=== PATIENT | female | born 1940 | race Two or more races ===

== ENCOUNTER 2024-10-22 16:00 | Inpatient (IN) | payer MEDICARE, OTHER ==
[~2024-10-22] VITALS: Ht 160 cm; Wt 61.2 kg
[~2024-10-22 16:00] MED LIST: LENA20CA PO
[2024-10-22] MEDS: IV NS 0.9% 1,000 ML BAG IV ONE (16:15)
[2024-10-22] MEDS ORDERED: NOREPINEPHRINE 8MG/250ML RTU 250 ML IV ONE (16:16)
[2024-10-22] MEDS ORDERED: PIPERACI/TAZO 3.375GM/D5W 50ML PB IV ONE (16:18)
[2024-10-22 17:00] LABS: LACTIC ACID 3.5 mmol/L (0.4-2.0)
[2024-10-22 17:05] LABS: INR 1.17 (0.91-1.10); PARTIAL THROMBOPLASTIN TIME 25.3 SEC (24.3-34.3); PROTHROMBIN TIME 12.3 SECS (9.2-11.1)
[2024-10-22 17:08] LABS: ALANINE AMINOTRANSFERASE 13 U/L (12-78); ALBUMIN 2.4 g/dL (3.4-5.0); ALKALINE PHOSPHATASE 112 U/L (46-116); ASPARTATE AMINOTRANSFERASE 16 U/L (15-37); BILIRUBIN,DIRECT 0.2 mg/dL (0.0-0.2); BILIRUBIN,TOTAL 0.5 mg/dL (0.2-1.0); CALCIUM, SERUM 8.8 mg/dL (8.5-10.1); CARBON DIOXIDE 19 mmol/L (21-32); CHLORIDE 105 mmol/L (98-107); CREATININE 5.2 mg/dL (0.6-1.3); GLUCOSE 172 mg/dL (74-106); POTASSIUM 3.4 mmol/L (3.5-5.1); SODIUM SERUM 140 mmol/L (136-145); TOTAL PROTEIN, SERUM 5.9 g/dL (6.4-8.2)
[2024-10-22 17:10] LABS: UREA NITROGEN, BLOOD 90 mg/dL (7-18)
[2024-10-22] MEDS ORDERED: CLOP75TA15 PO (17:28)
[2024-10-22] MEDS ORDERED: EMPA25TA PO (17:28)
[2024-10-22] MEDS ORDERED: LEVO-146 PO (17:28)
[2024-10-22] MEDS ORDERED: BISA10SU11 RC (17:28)
[2024-10-22] MEDS ORDERED: ACET-637 PO (17:28)
[2024-10-22] MEDS ORDERED: MIRT-90 PO (17:28)
[2024-10-22] MEDS ORDERED: GUAI100L26 PO (17:28)
[2024-10-22] MEDS ORDERED: ACET325T53 PO (17:28)
[2024-10-22] MEDS ORDERED: POLY15DR31 EACHEYE (17:28)
[2024-10-22] MEDS ORDERED: ONDA8TAB65 PO (17:28)
[2024-10-22] MEDS ORDERED: ACET-73 PO (17:28)
[2024-10-22] MEDS ORDERED: MELA3TAB41 PO (17:28)
[2024-10-22] MEDS ORDERED: FOLI0.8T23 PO (17:28)
[2024-10-22] MEDS ORDERED: DEXT37.54 PO (17:28)
[2024-10-22] MEDS ORDERED: GLUC1KIT IM (17:28)
[2024-10-22] MEDS ORDERED: PANT40TA49 PO (17:28)
[2024-10-22] MEDS ORDERED: MIDO10TA PO (17:28)
[2024-10-22] MEDS ORDERED: CALC667T8 PO (17:28)
[2024-10-22] MEDS: NOREPINEPHRINE 8 MG in IV NS 0.9% 250 ML IV ONE (17:30)
[2024-10-22] MEDS ORDERED: IOHEXOL-350 100 ML VIAL IV ONE (17:58)
[2024-10-22] MEDS ORDERED: IV NS 0.9% 250 ML IV ONE (17:58)
[2024-10-22 18:18] LABS: APPEARANCE,URINE TURBID (CLEAR); BILIRUBIN,URINE 2+ (NEGATIVE); BLOOD, URINE 3+ Ery/uL (NEGATIVE); COLOR,URINE BROWN (YELLOW); KETONES,URINE TRACE mg/dL (NEGATIVE); LEUKOCYTE ESTERASE ,URINE 2+ (NEGATIVE); NITRITE, URINE POSITIVE (NEGATIVE); PH,URINE 6.5 (5.0-8.0); PROTEIN,URINE 2+ mg/dl (NEGATIVE); UGLUCOSE TRACE mg/dL (NEGATIVE)
[2024-10-22] MEDS: AMIODARONE 450 MG in IV D5W 250 ML IV ONE (18:30)
[2024-10-22] MEDS: PIPERACILLIN /TAZOBACTAM 3.375 G in IV D5W 50 ML IV ONE (18:30)
[2024-10-22] MEDS: AMIODARONE 150 MG in IV D5W 100 ML IV ONE (18:30)
[2024-10-22 18:47] LABS: ADD URINE CULTURE YES; BACTERIA,URINE Many /HPF (None Seen); SQUAMOUS EPITHELIAL CELL,UR Few /HPF (None Seen); WBC,URINE TOO NUMEROUS TO COUN /HPF (0-3)
[2024-10-22 18:48] LABS: RBC,URINE 21-50 /HPF (0-2)
[2024-10-22 18:53] LABS: BASOPHILS % (AUTO) 0.6 % (0.0-2.0); EOSINOPHILS # (AUTO) 0.1 K/uL (0.0-0.7); EOSINOPHILS % (AUTO) 1.1 % (0.0-6.0); HEMATOCRIT 31 % (33-45); LYMPHOCYTES % (AUTO) 13.6 % (20.0-44.0); MEAN CORPUSCULAR HEMOGLOBIN 33 PG (26.0-33.0); MEAN CORPUSCULAR HGB CONC 32 g/dl (31.0-36.0); MEAN CORPUSCULAR VOLUME 102 fL (82-100); MONOCYTES # (AUTO) 0.8 K/uL (0.1-1.30); MONOCYTES % (AUTO) 11.5 % (2.0-12.0); NEUTROPHILS # (AUTO) 5.3 K/uL (1.8-8.9); NEUTROPHILS % (AUTO) 73.2 % (43.0-81.0); PLATELET COUNT (AUTO) 60 K/uL (150-450); RED BLOOD CELL COUNT(AUTO) 3.04 MIL/uL (4.0-5.2); RED CELL DISTRIBUTION WIDTH 18.2 % (11.5-15.0); WHITE BLOOD COUNT (AUTO) 7.3 K/uL (4.3-11.0)
[2024-10-22] MEDS: PHENYLEPHRINE 50 MG in IV NS 0.9% 250 ML IV ONE (19:00)
[2024-10-22 19:30] LABS: BAND % (MANUAL) 14 % (0.0-5.0); LYMPHOCYTES % (MANUAL) 12 % (16-48); METAMYELOCYTES % 1 % (0-0); MONOCYTES % (MANUAL) 11 % (0-11.0); MYELOCYTES % 1 % (0-0); NEUTROPHILS % (MANUAL) 61 (42-76)
[2024-10-22] MEDS ORDERED: ACETAMINOPHEN 325 MG TABLET PO PRN (19:30)
[2024-10-22] MEDS: IV NS 0.9% 1,000 ML IV ONE (19:30)
[2024-10-22] MEDS ORDERED: AMIODARONE 450 MG in IV D5W 241 ML IV PRN (19:30)
[2024-10-22] MEDS ORDERED: Z GUARD REMEDY 4 OZ OINT TP PRN (19:30)
[2024-10-22] MEDS ORDERED: ONDANSETRON HCL/PF 4 MG/2 ML VIAL IVP PRN (19:30)
[2024-10-22 19:31] LABS: PLATELET ESTIMATE DECRE
[2024-10-22 19:32] LABS: ANISOCYTOSIS 1+
[2024-10-22] MEDS ORDERED: ETOMIDATE 2 MG/ML VIAL ONE (19:33)
[2024-10-22] MEDS ORDERED: FENTANYL PF 100MCG/2ML AMPUL ONE (19:41)
[2024-10-22] MEDS: ETOMIDATE 2 MG/ML VIAL IV ONE ×2 (19:57→20:00)
[2024-10-22] MEDS: VASOPRESSIN INJ 40 UNIT in IV NS 0.9% 38 ML IV PRN (20:05)
[2024-10-22] MEDS: VANCOMYCIN 1 GM in IV D5W 250 ML IV ONE (20:30)
[2024-10-22] MEDS: SODIUM BICARBONATE 5 MEQ/10 ML DISP.SYRIN IV ONE (20:30)
[2024-10-22] MEDS ORDERED: ALBUMIN 25% 50 ML IV ONE ×2 (20:34→20:39)
[2024-10-22] MEDS ORDERED: SODIUM BICARBONATE SYR 50 MEQ/50 ML DISP.SYRIN ONE (20:43)
[2024-10-22 20:48] LABS: ABG BASE EXCESS -18.8 mmol/L (-2.0-3.0); ABG OXYGEN SATURATION 94.1 % (94.0-98.0); ABG PCO2 27.5 mmHg (32.0-45.0); ABG PH 7.129 (7.350-7.450); ABG TOTAL HEMOGLOBIN 9.9 G/dL (12.0-16.0); COHb 0.2 % (0.5-1.5); MetHb 0.7 % (0.0-1.5); O2Hb 93.3 % (94.0-97.0); SITE, ABG ALINE
[2024-10-22] MEDS: ALBUMIN 25% 12.5 GM/50 ML BOTTLE IV ONE (20:53)
[2024-10-22] MEDS ORDERED: VANCOMYCIN 1 GM /D5W 250 ML PB IV ONE (21:03)
[2024-10-22] MEDS: SODIUM BICARBONATE SYR 50 MEQ/50 ML DISP.SYRIN IV ONE ×2 (21:30→21:44)
[2024-10-22 23:00] VITALS: BP 115/93; O2SAT 96
[2024-10-22] MEDS: MEROPENEM 1 G in IV NS 0.9% 100 ML IV SCH (23:04)
[2024-10-22] MEDS: Sodium Bicarbonate 100 MEQ in IV D5/0.45 NACL 1,000 ML IV SCH (23:27)
[2024-10-22 23:30] VITALS: BP 143/112; O2SAT 94
[2024-10-22 23:45] VITALS: BP 50/40; O2SAT 95
[2024-10-22] MEDS: PHENYLEPHRINE 50 MG in IV NS 0.9% 245 ML IV PRN (23:54)
[2024-10-23] VITALS (97 sets, daily range): BP systolic 60–157; BP diastolic 31–106; TEMP 97.4–98.4; O2SAT 82–100
[2024-10-23] MEDS: PHENYLEPHRINE 10 MG/ML VIAL ONE ×2 (00:34)
[2024-10-23] MEDS: PHENYLEPHRINE 100 MG in IV NS 0.9% 240 ML IV PRN ×2 (00:41)
[2024-10-23] MEDS ORDERED: NOREPINEPHRINE 8 MG in IV D5W 242 ML IV PRN (02:30)
[2024-10-23] MEDS: NOREPINEPHRINE 32 MG in IV NS 0.9% 218 ML IV PRN (03:25)
[2024-10-23] MEDS: NOREPINEPHRINE 4 MG/4 ML AMPUL IV ONE (03:25)
[2024-10-23] MEDS: HYDROCORTISONE SOD SUCCINATE 100 MG/2 ML VIAL IV ONE (03:39)
[2024-10-23] MEDS: AMIODARONE 150 MG in IV D5W 100 ML IV ONE (04:46)
[2024-10-23 05:20] LABS: BASOPHILS % (AUTO) 0.2 % (0.0-2.0); EOSINOPHILS # (AUTO) 0.1 K/uL (0.0-0.7); EOSINOPHILS % (AUTO) 2.2 % (0.0-6.0); HEMATOCRIT 22 % (33-45); HEMOGLOBIN 7.3 g/dL (11.5-14.8); LYMPHOCYTES # (AUTO) 0.2 K/uL (0.8-4.8); MEAN CORPUSCULAR HEMOGLOBIN 32 PG (26.0-33.0); MEAN CORPUSCULAR HGB CONC 33 g/dl (31.0-36.0); MEAN CORPUSCULAR VOLUME 99 fL (82-100); MONOCYTES # (AUTO) 0.3 K/uL (0.1-1.30); MONOCYTES % (AUTO) 5.7 % (2.0-12.0); NEUTROPHILS # (AUTO) 5.3 K/uL (1.8-8.9); NEUTROPHILS % (AUTO) 88.9 % (43.0-81.0); RED BLOOD CELL COUNT(AUTO) 2.25 MIL/uL (4.0-5.2); RED CELL DISTRIBUTION WIDTH 17.7 % (11.5-15.0)
[2024-10-23 05:46] LABS: ALBUMIN 2.2 g/dL (3.4-5.0); BILIRUBIN,TOTAL 0.6 mg/dL (0.2-1.0); TOTAL PROTEIN, SERUM 4.5 g/dL (6.4-8.2)
[2024-10-23 05:50] LABS: PLATELET COUNT (AUTO) 38 K/uL (150-450)
[2024-10-23 06:13] LABS: POTASSIUM 2.1 mmol/L (3.5-5.1)
[2024-10-23 06:21] LABS: LACTIC ACID 4.6 mmol/L (0.4-2.0)
[2024-10-23 07:06] LABS: MAGNESIUM 1.4 mg/dL (1.8-2.4); PHOSPHORUS 5.5 mg/dL (2.5-4.9)
[2024-10-23 07:17] LABS: THYROID STIMULATING HORMONE 2.06 uIU/mL (0.358-3.74)
[2024-10-23] MEDS: POTASSIUM CL. PREMIX PERIPHER. 50 ML IV SCH ×2 (07:47→14:08)
[2024-10-23] MEDS ORDERED: Sodium Bicarbonate 100 MEQ in IV D5/0.45 NACL 1,000 ML IV SCH (09:00)
[2024-10-23] MEDS ORDERED: Sodium Bicarbonate 150 MEQ in IV D5W 1,000 ML IV SCH (09:30)
[2024-10-23] MEDS: Sodium Bicarbonate 150 MEQ in IV D5W 1,000 ML IV SCH (10:00)
[2024-10-23 10:23] LABS: ABG BASE EXCESS -6.2 mmol/L (-2.0-3.0); ABG OXYGEN SATURATION 98.7 % (94.0-98.0); ABG PCO2 35.8 mmHg (32.0-45.0); ABG PH 7.342 (7.350-7.450); ABG PO2 189.8 mmHg (83.0-108.0); ABG TOTAL HEMOGLOBIN 8.3 G/dL (12.0-16.0); MetHb 0.6 % (0.0-1.5); O2Hb 98.1 % (94.0-97.0); SITE, ABG RIGHT RADIAL
[2024-10-23] MEDS: PANTOPRAZOLE 40 MG VIAL IV SCH (11:37)
[2024-10-23 12:34] LABS: BAND % (MANUAL) 3 % (0.0-5.0); LYMPHOCYTES % (MANUAL) 7 % (16-48); MONOCYTES % (MANUAL) 1 % (0-11.0); NEUTROPHILS % (MANUAL) 89 (42-76)
[2024-10-23 12:35] LABS: PLATELET ESTIMATE DECREASED
[2024-10-23 12:36] LABS: ANISOCYTOSIS 1+
[2024-10-23 12:46] LABS: ALBUMIN 1.9 g/dL (3.4-5.0); BILIRUBIN,TOTAL 0.6 mg/dL (0.2-1.0); CALCIUM, SERUM 6.7 mg/dL (8.5-10.1); CREATININE 5.1 mg/dL (0.6-1.3); TOTAL PROTEIN, SERUM 4.3 g/dL (6.4-8.2)
[2024-10-23 12:49] LABS: BASOPHILS % (AUTO) 0.3 % (0.0-2.0); EOSINOPHILS # (AUTO) 0.1 K/uL (0.0-0.7); EOSINOPHILS % (AUTO) 1.7 % (0.0-6.0); HEMATOCRIT 22 % (33-45); HEMOGLOBIN 7.1 g/dL (11.5-14.8); LYMPHOCYTES # (AUTO) 0.2 K/uL (0.8-4.8); LYMPHOCYTES % (AUTO) 2.9 % (20.0-44.0); MEAN CORPUSCULAR HEMOGLOBIN 33 PG (26.0-33.0); MEAN CORPUSCULAR HGB CONC 32 g/dl (31.0-36.0); MEAN CORPUSCULAR VOLUME 101 fL (82-100); MONOCYTES # (AUTO) 0.5 K/uL (0.1-1.30); MONOCYTES % (AUTO) 8.1 % (2.0-12.0); NEUTROPHILS # (AUTO) 5.5 K/uL (1.8-8.9); RED BLOOD CELL COUNT(AUTO) 2.19 MIL/uL (4.0-5.2); RED CELL DISTRIBUTION WIDTH 18.1 % (11.5-15.0); WHITE BLOOD COUNT (AUTO) 6.4 K/uL (4.3-11.0)
[2024-10-23 13:16] LABS: POTASSIUM 2.6 mmol/L (3.5-5.1)
[2024-10-23 13:17] LABS: PLATELET COUNT (AUTO) 28 K/uL (150-450)
[2024-10-23] MEDS: IV NS 0.9% 1,000 ML IV SCH (14:21)
[2024-10-23] MEDS: HYDROCORTISONE SOD SUCCINATE 100 MG/2 ML VIAL IV SCH (14:40)
[2024-10-23 16:19] LABS: FERRITIN 9743 ng/mL (8-388); IRON, SERUM 21 ug/dl (50-175)
[2024-10-23 16:34] LABS: INR 1.6 (0.91-1.10); PARTIAL THROMBOPLASTIN TIME 34.3 SEC (24.3-34.3); PROTHROMBIN TIME 16.4 SECS (9.2-11.1)
[2024-10-23 16:37] LABS: D-DIMER 10.66 mg/L(FEU (0.17-0.50)
[2024-10-23] MEDS: Magnesium 1GM/D5W 100ML PREMIX 100 ML IV SCH (22:12)
[2024-10-23 23:23] LABS: HIV-1 p24 ANTIGEN NON REACTIVE (NONREACTIVE); HIV-1/2 ANTIBODY NON REACTIVE (NONREACTIVE)
[2024-10-23] MEDS: diphenhydrAMINE HCL 50 MG/ML VIAL IV ONE (23:31)
[2024-10-23] MEDS: ACETAMINOPHEN 325 MG TABLET PO ONE (23:34)
[2024-10-23] MEDS: diphenhydrAMINE HCL 50 MG/ML VIAL ONE (23:35)
[2024-10-24] VITALS (115 sets, daily range): BP systolic 44–168; BP diastolic 29–156; TEMP 97.5–99.3; O2SAT 82–100
[2024-10-24 05:24] LABS: BASOPHILS # (AUTO) 0.1 K/uL (0.0-0.2); BASOPHILS % (AUTO) 0.9 % (0.0-2.0); EOSINOPHILS # (AUTO) 0.2 K/uL (0.0-0.7); EOSINOPHILS % (AUTO) 1.4 % (0.0-6.0); HEMATOCRIT 28 % (33-45); HEMOGLOBIN 8.8 g/dL (11.5-14.8); LYMPHOCYTES # (AUTO) 0.3 K/uL (0.8-4.8); LYMPHOCYTES % (AUTO) 1.6 % (20.0-44.0); MEAN CORPUSCULAR HEMOGLOBIN 31 PG (26.0-33.0); MEAN CORPUSCULAR HGB CONC 32 g/dl (31.0-36.0); MEAN CORPUSCULAR VOLUME 98 fL (82-100); MONOCYTES # (AUTO) 0.9 K/uL (0.1-1.30); NEUTROPHILS # (AUTO) 13.9 K/uL (1.8-8.9); NEUTROPHILS % (AUTO) 90.1 % (43.0-81.0); RED BLOOD CELL COUNT(AUTO) 2.81 MIL/uL (4.0-5.2); RED CELL DISTRIBUTION WIDTH 17.1 % (11.5-15.0); WHITE BLOOD COUNT (AUTO) 15.4 K/uL (4.3-11.0)
[2024-10-24 05:34] LABS: PLATELET COUNT (AUTO) 18 K/uL (150-450)
[2024-10-24 05:37] LABS: CREATININE 4.4 mg/dL (0.6-1.3); POTASSIUM 3.6 mmol/L (3.5-5.1)
[2024-10-24 06:08] LABS: INR 1.85 (0.91-1.10); PARTIAL THROMBOPLASTIN TIME 36.1 SEC (24.3-34.3); PROTHROMBIN TIME 18.8 SECS (9.2-11.1)
[2024-10-24 06:09] LABS: D-DIMER 13.92 mg/L(FEU (0.17-0.50)
[2024-10-24 06:25] LABS: ANISOCYTOSIS 1+; EOSINOPHILS % (MANUAL) 1 % (0-4); LYMPHOCYTES % (MANUAL) 4 % (16-48); MONOCYTES % (MANUAL) 6 % (0-11.0); NEUTROPHILS % (MANUAL) 89 (42-76); PLATELET ESTIMATE DECREASED
[2024-10-24 06:28] LABS: BASOPHILS % (MANUAL) 0 % (0.0-2.0); EOSINOPHILS % (MANUAL) 1 % (0-4); LYMPHOCYTES % (MANUAL) 4 % (16-48); MONOCYTES % (MANUAL) 8 % (0-11.0); NEUTROPHILS % (MANUAL) 87 (42-76); PLATELET ESTIMATE DECREASED
[2024-10-24 06:29] LABS: ANISOCYTOSIS 1+
[2024-10-24 08:11] LABS: IMMUNOGLOBULIN A, SERUM 109 mg/dL (64-422); IMMUNOGLOBULIN G, SERUM 547 mg/dL (586-1602); IMMUNOGLOBULIN M, SERUM 13 mg/dL (26-217)
[2024-10-24] MEDS: THERAHONEY GEL 1.5 OZ TUBE TP SCH (09:03)
[2024-10-24 09:07] LABS: FOLIC ACID 7.4 ng/mL (>3.0)
[2024-10-24] MEDS: IV 1/2NS 1000 ML 1,000 ML IV PRN (09:54)
[2024-10-24] MEDS ORDERED: NOREPINEPHRINE 32 MG in IV NS 0.9% 218 ML IV PRN (10:00)
[2024-10-24 10:16] LABS: ABG BASE EXCESS -10.4 mmol/L (-2.0-3.0); ABG OXYGEN SATURATION 89.8 % (94.0-98.0); ABG PCO2 31.3 mmHg (32.0-45.0); ABG PH 7.298 (7.350-7.450); ABG PO2 67.5 mmHg (83.0-108.0); ABG TOTAL HEMOGLOBIN 8.9 G/dL (12.0-16.0); COHb 0.2 % (0.5-1.5); O2Hb 89.6 % (94.0-97.0); SITE, ABG RIGHT RADIAL
[2024-10-24 13:10] LABS: FREE KAPPA LT CHAINS SERUM 43.4 mg/L (3.3-19.4); FREE LAMBDA LT CHAIN SERUM 33.3 mg/L (5.7-26.3)
[2024-10-24] MEDS: ALBUMIN 25% 50 GM in PREMIX 1 EA IV ONE (13:35)
[2024-10-24 15:37] LABS: BASOPHILS # (AUTO) 0.2 K/uL (0.0-0.2); EOSINOPHILS # (AUTO) 0.2 K/uL (0.0-0.7); HEMATOCRIT 25 % (33-45); HEMOGLOBIN 8.1 g/dL (11.5-14.8); LYMPHOCYTES # (AUTO) 0.2 K/uL (0.8-4.8); LYMPHOCYTES % (AUTO) 1.4 % (20.0-44.0); MEAN CORPUSCULAR HEMOGLOBIN 31 PG (26.0-33.0); MEAN CORPUSCULAR HGB CONC 32 g/dl (31.0-36.0); MEAN CORPUSCULAR VOLUME 97 fL (82-100); MONOCYTES # (AUTO) 0.6 K/uL (0.1-1.30); MONOCYTES % (AUTO) 3.8 % (2.0-12.0); NEUTROPHILS % (AUTO) 92.8 % (43.0-81.0); WHITE BLOOD COUNT (AUTO) 16.2 K/uL (4.3-11.0)
[2024-10-24 15:48] LABS: PLATELET COUNT (AUTO) 37 K/uL (150-450)
[2024-10-24] MEDS: VANCOMYCIN POST DIALYSIS 500MG IV PRN (16:48)
[2024-10-24 17:04] LABS: ANISOCYTOSIS 1+; BAND % (MANUAL) 8 % (0.0-5.0); BASOPHILS % (MANUAL) 0 % (0.0-2.0); EOSINOPHILS % (MANUAL) 0 % (0-4); LYMPHOCYTES % (MANUAL) 4 % (16-48); NEUTROPHILS % (MANUAL) 73 (42-76); PLATELET ESTIMATE DECREASED
[2024-10-24 17:13] LABS: METAMYELOCYTES % 2 % (0-0)
[2024-10-24 17:18] LABS: MONOCYTES % (MANUAL) 13 % (0-11.0)
[2024-10-24 17:58] LABS: ABG BASE EXCESS -11.6 mmol/L (-2.0-3.0); ABG OXYGEN SATURATION 87.3 % (94.0-98.0); ABG PCO2 53.1 mmHg (32.0-45.0); ABG PH 7.125 (7.350-7.450); ABG PO2 70.2 mmHg (83.0-108.0); ABG TOTAL HEMOGLOBIN 8.1 G/dL (12.0-16.0); COHb 0.7 % (0.5-1.5); MetHb 0.1 % (0.0-1.5); O2Hb 86.6 % (94.0-97.0); SITE, ABG RIGHT RADIAL
[2024-10-24] MEDS: HYDROCORTISONE SOD SUCCINATE 100 MG/2 ML VIAL IV ONE (18:08)
[2024-10-24] MEDS ORDERED: SODIUM BICARBONATE SYR 50 MEQ/50 ML DISP.SYRIN ONE (18:13)
[2024-10-24] MEDS ORDERED: Sodium Bicarbonate 100 MEQ in IV D5/0.45 NACL 1,000 ML IV PRN (18:30)
[2024-10-24] MEDS: CALCIUM CHLORIDE 1,000 MG/10 ML DISP.SYRIN IV ONE (18:30)
[2024-10-24] MEDS: Sodium Bicarbonate 150 MEQ in IV D5W 1,000 ML IV SCH (18:57)
[2024-10-24 20:06] LABS: CALCIUM, SERUM 7.5 mg/dL (8.5-10.1); CREATININE 2.4 mg/dL (0.6-1.3); POTASSIUM 3.3 mmol/L (3.5-5.1)
[2024-10-24 20:19] LABS: ABG BASE EXCESS -2.9 mmol/L (-2.0-3.0); ABG OXYGEN SATURATION 98.7 % (94.0-98.0); ABG PCO2 31.5 mmHg (32.0-45.0); ABG PH 7.439 (7.350-7.450); ABG PO2 200.5 mmHg (83.0-108.0); ABG TOTAL HEMOGLOBIN 7.6 G/dL (12.0-16.0); COHb 0.4 % (0.5-1.5); MetHb 0.1 % (0.0-1.5); O2Hb 98.2 % (94.0-97.0); PEEP,BG 8 cm H2O; SITE, ABG RIGHT RADIAL; VT, ABG 400 mL
[2024-10-24 20:48] LABS: WHITE BLOOD COUNT (AUTO) 16.8 K/uL (4.3-11.0)
[2024-10-24 20:56] LABS: BASOPHILS # (AUTO) 0.2 K/uL (0.0-0.2); BASOPHILS % (AUTO) 1.4 % (0.0-2.0); EOSINOPHILS # (AUTO) 0.3 K/uL (0.0-0.7); EOSINOPHILS % (AUTO) 1.7 % (0.0-6.0); HEMATOCRIT 28 % (33-45); LYMPHOCYTES # (AUTO) 0.6 K/uL (0.8-4.8); LYMPHOCYTES % (AUTO) 3.8 % (20.0-44.0); MEAN CORPUSCULAR HEMOGLOBIN 33 PG (26.0-33.0); MEAN CORPUSCULAR HGB CONC 29 g/dl (31.0-36.0); MEAN CORPUSCULAR VOLUME 113 fL (82-100); MONOCYTES # (AUTO) 1.7 K/uL (0.1-1.30); MONOCYTES % (AUTO) 9.9 % (2.0-12.0); NEUTROPHILS % (AUTO) 83.2 % (43.0-81.0); PLATELET COUNT (AUTO) 52 K/uL (150-450); RED BLOOD CELL COUNT(AUTO) 2.45 MIL/uL (4.0-5.2); RED CELL DISTRIBUTION WIDTH 23.9 % (11.5-15.0)
[2024-10-24 21:52] LABS: ANISOCYTOSIS 1+; BAND % (MANUAL) 1 % (0.0-5.0); LYMPHOCYTES % (MANUAL) 3 % (16-48); MONOCYTES % (MANUAL) 7 % (0-11.0); NEUTROPHILS % (MANUAL) 89 (42-76); PLATELET ESTIMATE DECREASED
[2024-10-25] VITALS (95 sets, daily range): BP systolic 0–143; BP diastolic 27–98; TEMP 97–98.9; O2SAT 0–100
[2024-10-25 02:11] LABS: HEPATITIS B SURFACE AB Non Reactive (.)
[2024-10-25] MEDS: FENTANYL CITRAT IV 2,500 MCG in IV NS 0.9% 200 ML IV PRN (03:10)
[2024-10-25] MEDS: MIDAZOLAM HCL 100 MG in IV NS 0.9% 80 ML IV PRN (03:58)
[2024-10-25 05:00] LABS: ALBUMIN 2.5 g/dL (3.4-5.0); BILIRUBIN,TOTAL 2.8 mg/dL (0.2-1.0); CALCIUM, SERUM 7.1 mg/dL (8.5-10.1); CREATININE 2.6 mg/dL (0.6-1.3); MAGNESIUM 1.8 mg/dL (1.8-2.4); PHOSPHORUS 3.1 mg/dL (2.5-4.9); POTASSIUM 3.4 mmol/L (3.5-5.1); TOTAL PROTEIN, SERUM 4.2 g/dL (6.4-8.2)
[2024-10-25 05:05] LABS: BASOPHILS % (AUTO) 0.2 % (0.0-2.0); EOSINOPHILS # (AUTO) 0.1 K/uL (0.0-0.7); EOSINOPHILS % (AUTO) 0.7 % (0.0-6.0); HEMATOCRIT 24 % (33-45); LYMPHOCYTES # (AUTO) 0.3 K/uL (0.8-4.8); LYMPHOCYTES % (AUTO) 1.6 % (20.0-44.0); MEAN CORPUSCULAR HEMOGLOBIN 32 PG (26.0-33.0); MEAN CORPUSCULAR HGB CONC 33 g/dl (31.0-36.0); MEAN CORPUSCULAR VOLUME 98 fL (82-100); MONOCYTES % (AUTO) 5.3 % (2.0-12.0); NEUTROPHILS % (AUTO) 92.2 % (43.0-81.0); RED BLOOD CELL COUNT(AUTO) 2.46 MIL/uL (4.0-5.2); RED CELL DISTRIBUTION WIDTH 17.5 % (11.5-15.0); WHITE BLOOD COUNT (AUTO) 19.5 K/uL (4.3-11.0)
[2024-10-25 05:07] LABS: INR 2.04 (0.91-1.10); PARTIAL THROMBOPLASTIN TIME 45.8 SEC (24.3-34.3); PROTHROMBIN TIME 20.6 SECS (9.2-11.1)
[2024-10-25 05:18] LABS: D-DIMER 14.05 mg/L(FEU (0.17-0.50)
[2024-10-25 05:41] LABS: ANISOCYTOSIS 1+; EOSINOPHILS % (MANUAL) 1 % (0-4); LYMPHOCYTES % (MANUAL) 4 % (16-48); MONOCYTES % (MANUAL) 5 % (0-11.0); NEUTROPHILS % (MANUAL) 90 (42-76); PLATELET ESTIMATE DECREASED
[2024-10-25 09:09] LABS: *SPE ALBUMIN 2.1 g/dL (2.9-4.4); *SPE ALPHA-1-GLOBULIN 0.4 g/dL (0.0-0.4); *SPE ALPHA-2-GLOBULIN 0.7 g/dL (0.4-1.0); *SPE BETA GLOBULIN 0.5 g/dL (0.7-1.3); *SPE GLOBULIN, TOTAL 2.1 g/dL (2.2-3.9); *SPE M-SPIKE Not Observed g/dL (Not Observed); *SPE PROTEIN TOTAL 4.2 g/dL (6.0-8.5); *SPEGAMMA GLOBULIN 0.6 g/dL (0.4-1.8)
[2024-10-25] MEDS ORDERED: ETOMIDATE 2 MG/ML VIAL IV ONE (09:50)
[2024-10-25 09:51] LABS: ABG BASE EXCESS -0.2 mmol/L (-2.0-3.0); ABG PCO2 36.8 mmHg (32.0-45.0); ABG PH 7.432 (7.350-7.450); ABG PO2 86.8 mmHg (83.0-108.0); ABG TOTAL HEMOGLOBIN 7.9 G/dL (12.0-16.0); COHb 1.1 % (0.5-1.5); MetHb 0.3 % (0.0-1.5); O2Hb 94.7 % (94.0-97.0); PEEP,BG 5 cm H2O; SITE, ABG RIGHT RADIAL; VT, ABG 400 mL
[2024-10-25] MEDS ORDERED: DEXTROSE 50%-WATER 50 ML DISP.SYRIN IV PRN (14:00)
[2024-10-25] MEDS ORDERED: CALCIUM CHLORIDE 1,000 MG/10 ML DISP.SYRIN IV ONE (15:49)
[2024-10-25] MEDS: diphenhydrAMINE HCL 50 MG/ML VIAL IV ONE (17:27)
[2024-10-25] MEDS: ACETAMINOPHEN 325 MG TABLET PO ONE (17:27)
[2024-10-25] MEDS: BLOOD SUGAR DIAGNOSTIC 1 EACH STRIP IN SCH (17:28)
[2024-10-25] MEDS: INSULIN REGULAR, HUMAN 100 UNIT/ML 3 ML VIAL SQ PRN (17:29)
[2024-10-25] MEDS: VANCOMYCIN HCL 125 MG/2.5 ML ORAL.SUSP GT SCH (18:36)
[2024-10-25] MEDS ORDERED: ONDANSETRON HCL/PF 4 MG/2 ML VIAL IVP PRN (21:30)
[2024-10-25] MEDS: MORPHINE SULFATE INJ 2 MG/ML DISP.SYRIN IV PRN (21:39)
[2024-10-25] MEDS: LORAZEPAM INJ 2 MG/ML VIAL IV PRN (21:39)
[2024-10-25] MEDS: SCOPOLAMINE PATCH 1 MG/72HR TD SCH (21:40)
[2024-10-25] MEDS ORDERED: MORPHINE SULFATE INJ 2 MG/ML DISP.SYRIN IV PRN ×2 (22:00)
[2024-10-25] MEDS ORDERED: LORAZEPAM INJ 2 MG/ML VIAL IV PRN (22:00)
== END 2024-10-25 22:03 | DRG 871 ==
LOC: ER 16:08 → ICU 20:57
PROVIDERS: ADMIT Nurse Practitioner Family; ATTEND Nurse Practitioner Family
PROC: 5A2204Z Restoration of Cardiac Rhythm, Single (ICD-10-PCS; principal; 2024-10-22)
PROC: 06HY33Z Insertion of Infusion Device into Lower Vein, Percutaneous Approach (ICD-10-PCS; 2024-10-22)
PROC: 02HV33Z Insertion of Infusion Device into Superior Vena Cava, Percutaneous Approach (ICD-10-PCS; 2024-10-22)
PROC: B548ZZA Ultrasonography of Superior Vena Cava, Guidance (ICD-10-PCS; 2024-10-22)
PROC: 5A09357 Assistance with Respiratory Ventilation, Less than 24 Consecutive Hours, Continuous Positive Airway Pressure (ICD-10-PCS; 2024-10-23)
PROC: 02HV33Z Insertion of Infusion Device into Superior Vena Cava, Percutaneous Approach (ICD-10-PCS; 2024-10-23)
PROC: B548ZZA Ultrasonography of Superior Vena Cava, Guidance (ICD-10-PCS; 2024-10-23)
PROC: 5A1D70Z Performance of Urinary Filtration, Intermittent, Less than 6 Hours Per Day (ICD-10-PCS; 2024-10-23)
PROC: 5A1945Z Respiratory Ventilation, 24-96 Consecutive Hours (ICD-10-PCS; 2024-10-24)
PROC: 0BH17EZ Insertion of Endotracheal Airway into Trachea, Via Natural or Artificial Opening (ICD-10-PCS; 2024-10-24)
PROC: 30233R1 Transfusion of Nonautologous Platelets into Peripheral Vein, Percutaneous Approach (ICD-10-PCS; 2024-10-24)
PROC: 30233N1 Transfusion of Nonautologous Red Blood Cells into Peripheral Vein, Percutaneous Approach (ICD-10-PCS; 2024-10-24)
PROC: 30233M1 Transfusion of Nonautologous Plasma Cryoprecipitate into Peripheral Vein, Percutaneous Approach (ICD-10-PCS; 2024-10-25)
DX: A41.9 Sepsis, unspecified organism (principal); D65 Disseminated intravascular coagulation [defibrination syndrome]; G93.41 Metabolic encephalopathy; I21.A1 Myocardial infarction type 2; Z51.5 Encounter for palliative care; R65.21 Severe sepsis with septic shock; J96.01 Acute respiratory failure with hypoxia; N18.6 End stage renal disease; E44.0 Moderate protein-calorie malnutrition; E87.20 Acidosis, unspecified; N39.0 Urinary tract infection, site not specified; J90 Pleural effusion, not elsewhere classified; E87.0 Hyperosmolality and hypernatremia; N17.9 Acute kidney failure, unspecified; I13.2 Hypertensive heart and chronic kidney disease with heart failure and with stage 5 chronic kidney disease, or end stage renal disease; C90.00 Multiple myeloma not having achieved remission; I82.412 Acute embolism and thrombosis of left femoral vein; I82.433 Acute embolism and thrombosis of popliteal vein, bilateral; A04.72 Enterocolitis due to Clostridium difficile, not specified as recurrent; M48.54XA Collapsed vertebra, not elsewhere classified, thoracic region, initial encounter for fracture; I48.91 Unspecified atrial fibrillation; D53.9 Nutritional anemia, unspecified; E03.9 Hypothyroidism, unspecified; E87.6 Hypokalemia; E88.09 Other disorders of plasma-protein metabolism, not elsewhere classified; I48.0 Paroxysmal atrial fibrillation; D69.6 Thrombocytopenia, unspecified; G89.4 Chronic pain syndrome; E11.22 Type 2 diabetes mellitus with diabetic chronic kidney disease; K21.9 Gastro-esophageal reflux disease without esophagitis; E83.9 Disorder of mineral metabolism, unspecified; Z99.2 Dependence on renal dialysis; L98.8 Other specified disorders of the skin and subcutaneous tissue; S41.111A Laceration without foreign body of right upper arm, initial encounter; X58.XXXA Exposure to other specified factors, initial encounter; Y93.9 Activity, unspecified; Y92.129 Unspecified place in nursing home as the place of occurrence of the external cause; L89.320 Pressure ulcer of left buttock, unstageable; L89.316 Pressure-induced deep tissue damage of right buttock; L89.156 Pressure-induced deep tissue damage of sacral region; I50.9 Heart failure, unspecified; B96.20 Unspecified Escherichia coli [E. coli] as the cause of diseases classified elsewhere
CPT/HCPCS: 31720; 36415; 36600; 38221; 71045-TC; 74018; 80048-TC; 80053-TC; 80061-TC; 80076-TC; 80202-TC; 81001; 82533; 82607-TC; 82728-TC; 82784; 82803-TC; 82962-TC; 83540-TC; 83605-TC; 83735-TC; 84100-TC; 84155; 84165; 84443-TC; 84484-TC; 85025-TC; 85396; 85730-TC; 86334; 86706; 86803; 86850-TC; 87040-TC; 87081-TC; 87086-TC; 87186-TC; 87340; 87806; 90935-TC; 93307-TC; 93970-TC; 94002-TC; 94003-TC; 94762-TC; 94799-TC; A4216; A4223; C1751; G0378; J0171; J0282; J1200; J1720; J1815; J2060; J2185; J2250; J2270; J2470; J2543; J3010; J3370; J3475; J3480; J3490; J7030; J7040; J7050; J7060; J7070; P9012; P9016; P9034; P9047; Q9967